=== PATIENT | female | born 1970 | race American Indian/Alaskan Native ===

== ENCOUNTER 2021-11-21 22:27 | Emergency (ER) | payer MEDICAID, OTHER ==
[2021-11-21 23:45] VITALS: BP 140/91; PULSE 88
== END 2021-11-21 23:55 | disposition left against medical advice (07) ==
LOC: DL.ED 22:27
DX: Z53.21 Procedure and treatment not carried out due to patient leaving prior to being seen by health care provider (principal)
CPT/HCPCS: 81001; 87086; 87491; 87563; 87591

== ENCOUNTER 2021-11-23 10:16 | Emergency (ER) | payer MEDICAID ==
[2021-11-23 10:30] VITALS: BP 88/69; PULSE 84
== END 2021-11-23 11:55 | disposition home or self-care (01) ==
LOC: DL.ED 10:16
DX: H65.93 Unspecified nonsuppurative otitis media, bilateral (principal); E03.9 Hypothyroidism, unspecified; F17.210 Nicotine dependence, cigarettes, uncomplicated; Z79.899 Other long term (current) drug therapy
CPT/HCPCS: 99282